=== PATIENT | female | born 1975 | race Caucasian/White ===

== ENCOUNTER 2017-03-29 16:17 | Emergency (ER) | payer MEDICAID, OTHER ==
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
[~2017-03-29 16:17] MED LIST: ABILIFY5 MG PO; BIRTH CONTROL PILL; CORGARD; COZAAR100 MG PO; FLEXERIL10 M1 PO; GABAPENTIN800 MG PO; HYDROCHLOROTHIA25 MG DOB; K-DUR20 ME1 PO; NAPROSYN500 MG PO; ORTHO TRI-7 DAYS X PO; PHENERGAN25 MG PO; PRILOSEC20 M1 PO; PROGESTERONE; SEROQUEL300 M1 PO; TOPROL XL100 MG PO; TRAMADOL HCL50 M1 PO; TRAZODONE HCL100 MG PO; VICODIN ES 7.51 EAC1 PO; VISTARIL PO; VOLTAREN75 MG PO; ZANAFLEX4 M1 PO
[2017-03-29] MEDS ORDERED: SUBOXONE 8 MG-1 EAC1 (16:20)
== END 2017-03-29 18:04 | disposition home or self-care (01) ==
LOC: SED 16:17
DX: S09.90XA Unspecified injury of head, initial encounter (principal); F17.210 Nicotine dependence, cigarettes, uncomplicated; Z79.899 Other long term (current) drug therapy; V43.52XA Car driver injured in collision with other type car in traffic accident, initial encounter; Y92.410 Unspecified street and highway as the place of occurrence of the external cause
CPT/HCPCS: 70450; 72125; 99284

== ENCOUNTER 2017-05-01 00:41 | Emergency (ER) | payer MEDICAID ==
[~2017-05-01] VITALS: Ht 162.6 cm; Wt 93.0 kg
--- NOTE | ~2017-05-01 | EKG ---
PATIENT: WOLF TEJEDA UNIT #: [id number] Ventricular Rate: 68 BPM Atrial Rate: 68 BPM P-R Interval: 166 ms QRS Duration: 114 ms Q-T Interval: 444 ms QTC Calculation(Bezet): 472 ms P [place]: 15 degrees Calculated R [place]: 63 degrees Calculated T [place]: 24 degrees Diagnosis Line: Normal sinus rhythm Diagnosis Line: Incomplete right bundle branch block Diagnosis Line: Borderline ECG Diagnosis Line: When compared with ECG of 09-MAY-2016 21:00, Diagnosis Line: Incomplete right bundle branch block has replaced Diagnosis Line: Right bundle branch block Diagnosis Line: Confirmed by ILDEFONSO HERNANDEZ MD ([id number]) on Diagnosis Line: 05/02/2017 8:28:09 AM INTERPRETING MD: MARY DAS
--- NOTE | ~2017-05-01 | CT71 ---
[facility] A Service [facility] RADIOLOGY TEXT RESULTS PATIENT: WOLF TEJEDA LOCATION: ANNETTE : [birth year] UNIT #: [id number] AGE: [address]: Mario Alberto Hunter MD SEX: F ORDER DR: [id number] [place] [id number] [facility]. [place], [place] [address] [id number] E MR#: [id number] Acc #: [id number] NAME: WOLF TEJEDA : 1975 SEX: F STUDY DATE/TIME: 05/01/2017 3:13 UNIT: ANNETTE ROOM: STUDY DESCRIPTION: CT Head Wo Contrast Attending Physician: Mario Alberto Hunter M.D. Ordering Physician: Lee Cr D.O. Primary Care Physician: Dunia Epstein M.D. MEDICAL IMAGING REPORT This report is preliminary unless electronic signature is present EXAM CT head without contrast. INDICATIONS Headache and dizziness today. PROCEDURE Unenhanced CT of the head. This CT exam was performed with one or more of the following radiation dose reduction techniques: automatic exposure control, adjustment of mA and/or kV according to patient size, and iterative reconstruction. COMPARISON 03/29/2017 FINDINGS No acute hemorrhage, abnormal mass effect, extraaxial collection or hydrocephalus. No depressed calvarial fracture. Paranasal sinuses and mastoid air cells clear. IMPRESSION No acute intracranial findings. Dictated by... Negro Yu M.D. THIS IS AN ELECTRONICALLY VERIFIED REPORT Negro Yu M.D. at 05/01/2017 9:50 PM EDIS/mar TD: 05/01/2017 13:45 JOB #: [id number] [facility] A Service of [facility] RADIOLOGY TEXT RESULTS PATIENT: WOLF TEJEDA LOCATION: [facility] : [birth year] UNIT #: [id number] AGE: [address]: Mario Alberto Hunter MD SEX: F ORDER DR: MEDICAL IMAGING REPORT Page 1 of 1 COPY
--- NOTE | ~2017-05-01 | CR63 ---
[facility] A Service of [facility] & [facility] RADIOLOGY TEXT RESULTS PATIENT: WOLF TEJEDA LOCATION: [facility] : [birth year] UNIT #: [id number] AGE: [address]: Mario Alberto Hunter MD SEX: F ORDER DR: [id number] [facility] [address] [place], [place] [address] [id number] E MR#: [id number] Acc #: [id number] NAME: WOLF TEJEDA : 1975 SEX: F STUDY DATE/TIME: 05/01/2017 2:11 UNIT: [facility] ROOM: STUDY DESCRIPTION: CR Chest 2 View Attending Physician: Mario Alberto Hunter M.D. Ordering Physician: Lee Cr D.O. Primary Care Physician: Dunia Epstein M.D. MEDICAL IMAGING REPORT This report is preliminary unless electronic signature is present EXAM Two-view chest. INDICATIONS Shortness of air tonight. PROCEDURE Frontal and lateral views of the chest. COMPARISON 04/13/2015 FINDINGS Mild cardiomegaly is unchanged. There is mild to moderate central pulmonary vascular congestion. Low lung volumes, but no dense consolidation, visible pleural fluid or pneumothorax. IMPRESSION Mild cardiomegaly and moderate central vascular prominence. No dense consolidation. Dictated by... Negro Yu M.D. THIS IS AN ELECTRONICALLY VERIFIED REPORT Negro Yu M.D. at 05/01/2017 9:50 PM EED/nicolás TD: 05/01/2017 13:40 JOB #: [id number] MEDICAL IMAGING REPORT Page 1 of 1 COPY
[~2017-05-01 00:41] MED LIST changes: +SUBOXONE 8 MG-1 EAC1
[2017-05-01 02:58] LABS: ALBUMIN SERUM 3.5 g/dL (3.5-5.0); ALKALINE PHOSPHATASE 110 U/L (32-92); ALT (SGPT) 27 U/L (10-40); AST (SGOT) 29 U/L (10-42); BILIRUBIN,TOTAL 0.4 mg/dL (0.2-2.0); BLOOD UREA NITROGEN 12 mg/dL (9-23); BUN/CREATININE RATIO 17.14; CALCIUM SERUM 8.3 mg/dL (8.4-10.2); CARBON DIOXIDE 26 mmol/L (22-31); CHLORIDE 104 mmol/L (100-111); CREATININE SERUM 0.7 mg/dL (0.6-1.4); GLOM FILT RATE Estimated 109.1 mL/min (>60); GLUCOSE FASTING 135 mg/dL (70-110); POTASSIUM 3.9 mmol/L (3.5-5.1); PROTEIN TOTAL SERUM 6.7 g/dL (6.0-8.3); SALICYLATE <4.0 mg/dL; SODIUM 134 mmol/L (135-145)
[2017-05-01 03:02] LABS: ACETAMINOPHEN <10 ug/mL; ALCOHOL BLOOD <5 mg/dL ([, 0]); BILIRUBIN, DIRECT <0.1 mg/dL (0.0-0.2); BILIRUBIN,INDIRECT 0.3 mg/dL (0.0-0.9)
[2017-05-01 03:17] LABS: POC - CKMB 2.6 ng/mL (0.0-7.9); POC - TROPONIN <0.05 ng/mL (<=0.05)
[2017-05-01 04:02] LABS: URINE SOURCE CLEAN CATCH
[2017-05-01 04:07] LABS: URINE APPEARANCE CLEAR; URINE BILIRUBIN NEG (NEG); URINE BLOOD NEG (NEG); URINE COLOR YELLOW; URINE GLUCOSE NEG (NEG); URINE KETONE NEG (NEG); URINE LEUKOCYTE ESTERASE NEG (NEG); URINE NITRATE NEG (NEG); URINE PH 6.5 (5-8); URINE PROTEIN NEG (NEG); URINE SPECIFIC GRAVITY 1.026 (1.003-1.035); URINE UROBILINOGEN 0.2 MG/DL (NEG)
[2017-05-01 04:10] LABS: CULTURE INDICATED? NO
[2017-05-01 04:16] LABS: AMPHETAMINE NEG (NEG); BARBITURATES NEG (NEG); BENZODIAZEPINES POS (NEG); COCAINE NEG (NEG); MARIJUANA NEG (NEG); OPIATES NEG (NEG); TRICYCLIC ANTIDEPRESSANTS NEG (NEG); U METHADONE NEG (NEG)
== END 2017-05-01 10:39 ==
LOC: CED 00:41
PROVIDERS: Emergency Medicine
DX: T42.8X1A Poisoning by antiparkinsonism drugs and other central muscle-tone depressants, accidental (unintentional), initial encounter (principal); T42.4X1A Poisoning by benzodiazepines, accidental (unintentional), initial encounter; F17.200 Nicotine dependence, unspecified, uncomplicated; I10 Essential (primary) hypertension; F41.8 Other specified anxiety disorders; Z79.899 Other long term (current) drug therapy
CPT/HCPCS: 36415; 70450; 71020; 80048; 80076; 80307; 81003; 82553; 83880; 84484; 84702; 84703; 93005; 96360; 99285; G0480

== ENCOUNTER 2017-05-01 05:00 | Inpatient (IN) | payer MEDICAID ==
[~2017-05-01] VITALS: Ht 162.6 cm; Wt 81.6 kg
--- NOTE | ~2017-05-01 | PN ---
Unit #: [id number] #: [id number] Patient: WOLF TEJEDA [id number] [facility] [address] [place] [address] [id number] I MR#: [id number] NAME: WOLF TEJEDA ROOM: P207 Age: 41 Sex: F Admission Date: 05/01/2017 : 1975 Attending Physician: Bekah Reynolds M.D. Admitting Physician: Bekah Reynolds M.D. Primary Care Physician: Edgardo Jean PROGRESS NOTES DATE 05/02/2017 DISCUSSION Ms. Tejeda is a 41-year-old white female with mood disorder who was seen today and chart was reviewed and case was discussed with the staff. She was seen to be anxious, withdrawn and actively trying to mask and minimize her presentation. Meanwhile, she has not shown any agitation or aggression and has been taking medications and tolerating them fairly well with no reported side effects. MENTAL STATUS EXAMINATION Middle-aged white female who was casually dressed with fair personal hygiene and appears to be in no acute distress or discomfort. She was awake and alert with impaired attention and concentration. Her mood was anxious with a congruent affect. She denies any suicidal or homicidal ideation. Her insight and judgement remains slightly impaired. TREATMENT PLAN 1. Will continue on current medications and treatment protocol. Will monitor her response to the medications and make further adjustments as needed. 2. Will continue to follow up. Dictated by... Edgardo Aleman/elizabeth TD: 05/02/2017 18:17 JOB #: [id number] Unit #: [id number] #: [id number] Patient: WOLF TEJEDA PROGRESS NOTES Page 1 of 1 X Bekah Reynolds MD X PROGRESS NOTE
--- NOTE | ~2017-05-01 | HP ---
Unit #: [id number] #: [id number] Patient: LIANA TEJEDA [id number] [place] [address] [id number] I MR#: [id number] NAME: LIANA TEJEDA ROOM: P207 Age: 41 Sex: F Admission Date: 05/01/2017 : 1975 Attending Physician: Bekah Reynolds M.D. Admitting Physician: Bekah Reynolds M.D. Primary Care Physician: Dunia Epstein M.D. HISTORY AND PHYSICAL HISTORY OF PRESENT ILLNESS Liana is a 41-year-old female admitted on 05/01/2017. She was transferred here from [facility] where they had concerns about a possible overdose. She reported being agitated after an argument with her and she took several pills. PAST MEDICAL HISTORY 1. Chronic back pain. 2. Insomnia. PAST SURGICAL HISTORY None documented. ALLERGIES No known drug allergies. SOCIAL HISTORY She is but from her and is currently living with her ex-. She smokes 1 pack of cigarettes daily. Denies alcohol use and denies any illegal drug use. FAMILY HISTORY Noncontributory. REVIEW OF SYSTEMS CONSTITUTIONAL: No fever or chills. HEENT: Denies any sore throat, ear pain or runny nose. CARDIOVASCULAR: Denies chest pain, irregular heart rhythm or palpitations. CHEST: Denies shortness of breath or cough. No hemoptysis. GASTROINTESTINAL: Denies nausea, vomiting, diarrhea or chronic constipation. ENDOCRINE: Denies history of increased thirst or urination. No recent significant weight loss or gain. GENITOURINARY: Denies dysuria, frequency, or hematuria. SKIN: Denies any rashes. HEMATOLOGIC: Denies history of increased bleeding or bruising. MUSCULOSKELETAL: Denies any hot, swollen joints. No generalized muscle pain. NEUROLOGIC: Denies problems with vision or speech. No frequent, severe headaches. No numbness, tingling or weakness in any extremities. Denies loss of bladder or bowel control. CURRENT MEDICATIONS Unit #: [id number] #: [id number] Patient: LIANA TEJEDA Tizanidine. PHYSICAL EXAMINATION GENERAL: Alert, oriented, in no acute distress. VITAL SIGNS: Blood pressure 156/99, heart rate 81, respirations 24, temperature 98.7. HEIGHT: 5 feet 4. WEIGHT: 180 pounds. SKIN: Warm and dry without rash or lesion. HEENT: Normocephalic. TMs not viewed. Oral and nasal passages clear. Conjunctivae clear. PERRLA. EOMs intact. NECK: Supple without lymphadenopathy or thyromegaly. HEART: Regular rate and rhythm without murmur. LUNGS: Clear. ABDOMEN: Soft, nontender, without masses or hepatosplenomegaly. : Not done. EXTREMITIES: No evidence of cyanosis, clubbing or edema. Moves all without focal deficit. NEUROLOGICAL: Grossly within normal limits. Cranial Nerves: II: Visual contreras are intact. III, IV AND : Extraocular movements are intact. Pupils are equal, round and reactive to light. V: Facial sensation is grossly normal. VII: Facial movements and expression are normal. VIII: Auditory acuity grossly intact. IX, X: Uvula is midline. Phonation is normal. XI: Patient shrugs shoulders and turns head normally. XII: Tongue protrudes in the midline. Sensory and Motor Function: Sensory and motor sensation is grossly normal. Motor: moves all extremities well. Coordination: Gait is normal. Deep Tendon Reflexes: Intact. IMPRESSION 1. Psychiatric admission. 2. Chronic back pain. RECOMMENDATIONS PSYCHIATRIC: Per psychiatrist. MEDICAL: No contraindication to participate in facility's activities. MEDICAL PROGNOSIS Good. MEDICAL CONDITION Stable. Dictated by... Michelet Lucero/elizabeth TD: 05/02/2017 21:10 JOB #: [id number] Unit #: [id number] #: [id number] Patient: LIANA TEJEDA HISTORY AND PHYSICAL Page 1 of 1 X DENNIS NICOLE APRN HISTORY AND PHYSICAL
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
--- NOTE | ~2017-05-01 | PN ---
Unit #: [id number] #: [id number] Patient: WOLF SUÁREZ [id number] [facility] [address] [place] [address] [id number] I MR#: [id number] NAME: WOLF SUÁREZ ROOM: P207 Age: 41 Sex: F Admission Date: 05/01/2017 : 1975 Attending Physician: Bekah Reynolds M.D. Admitting Physician: Bekah Reynolds M.D. Primary Care Physician: Dunia Epstein M.D. [facility] PROGRESS NOTES DATE OF SERVICE 05/03/2017 DISCUSSION Ms. Suárez is a 41-year-old white female who was seen today. Chart was reviewed and case was discussed with the staff. She has been doing fairly well and has been maintaining a positive attitude and behavior and has been cooperative and compliant with treatment recommendations. MENTAL STATUS EXAMINATION Young white female who is casually dressed with fair personal hygiene, appears to be in no acute distress or discomfort. She was awake and alert on interaction with intact orientation. Her mood is anxious with congruent affect. She denies any suicidal or homicidal ideations. Her insight and judgment remain slightly impaired. TREATMENT PLAN 1. We will continue her on her current medications and treatment protocol. We will monitor her response to medications and make further adjustments as needed. 2. We will continue to follow up. Dictated by... Bekah Reynolds M.D. CORRINA/emmanuelle TD: 05/04/2017 08:47 JOB #: [id number] [facility] PROGRESS NOTES Page 1 of 1 X Bekah Reynolds MD PROGRESS NOTE
--- NOTE | ~2017-05-01 | DS ---
Unit #: [id number] #: [id number] Patient: WOLF TEJEDA [id number] [facility] [address] [place] [address] [id number] I MR#: [id number] NAME: WOLF TEJEDA ROOM: P207 Age: 41 Sex: F Admission Date: 05/01/2017 : 1975 Discharge Date: 05/04/2017 Attending Physician: Bekah Reynolds M.D. Primary Care Physician: Dunia Epstein M.D. DISCHARGE SUMMARY IDENTIFYING DATA Ms. Tejeda is a 41-year-old white female, who is a resident of [place], [place], and was transferred to us from emergency room on a 72 hours hold. DISCHARGE DIAGNOSES Psychiatric: Major depressive disorder, recurrent, moderate, without psychotic features. Medical: None. Stressors: Moderate psychosocial stressors. HISTORY OF PRESENT ILLNESS Please see initial psychiatric evaluation for details. PAST PSYCHIATRIC HISTORY Please see initial psychiatric evaluation for details. PAST MEDICAL HISTORY Please see initial psychiatric evaluation for details. HOSPITAL COURSE The patient was admitted to the adult psychiatric unit at [facility] and was oriented to the hospital environment. Routine p.r.n. medications were initiated, and she was started back on her home medications. 72 hours hold was maintained and she was closely monitored. She was taking the medications regularly and was tolerating them fairly well and was initially anxious, restless, and was pushing to leave, but then she was able to settle down and was taking the medications regularly and was tolerating them fairly well and once the 72 hour hold , she was denying any suicidal ideations, intent, or plan and as such, it was decided that she will be discharged home and will continue treatment on an outpatient basis. DISCHARGE MEDICATIONS Seroquel 150 mg at bedtime for mood disorder, Effexor XR 75 mg a day for depression, trazodone 50 mg at bedtime for sleep. DISCHARGE CONDITION Stable. PROGNOSIS Fair. Unit #: [id number] #: [id number] Patient: WOLF TEJEDA Dictated by... Bekah Reynolds M.D. IAA/juliusl TD: 05/04/2017 07:42 JOB #: [id number] DISCHARGE SUMMARY Page 1 of 1 X Bekah Reynolds MD DISCHARGE SUMMARY
[2017-05-02 10:55] LABS: BASOPHIL% 0.4 % (0-2.5); EOSINOPHIL# 0.2 X10e3 (0-0.7); EOSINOPHIL% 3.2 % (0.0-7.0); HEMATOCRIT 40.4 % (35.0-45.0); HEMOGLOBIN 13.5 gm/dL (12.0-16.0); LYMPHOCYTE# 2.8 X10e3 (1.0-3.5); LYMPHOCYTE% 37.1 % (17.0-45.0); MEAN CELL VOLUME 91.5 FL (83-96); MEAN CORPUSCULAR HEMOGLOBIN 30.6 PG (28-34); MEAN CORPUSCULAR HGB CONC 33.4 g/dL (30-36); MEAN PLATELET VOLUME 7.9 FL (6.5-11.5); MONOCYTE# 0.7 X10e3 (0-1.0); MONOCYTE% 9.2 % (3.0-12.0); NEUTROPHIL# 3.8 X10e3 (1.5-7.1); NEUTROPHIL% 50.1 % (40-75); PLATELET COUNT 298 X10e3 (140-420); RED BLOOD COUNT 4.41 X10e (3.90-5.30); WHITE BLOOD COUNT 7.5 X10e3 (4.0-10.5)
[2017-05-02 11:02] LABS: DIFF IND NO
== END 2017-05-04 09:50 | DRG 885 ==
LOC: P2S 09:46
PROVIDERS: Psychiatry & Neurology Psychiatry
DX: F33.1 Major depressive disorder, recurrent, moderate (principal); F17.210 Nicotine dependence, cigarettes, uncomplicated; G89.29 Other chronic pain; M54.9 Dorsalgia, unspecified
CPT/HCPCS: 84703; 85025; 86592